=== PATIENT | female | born 1990 | race Caucasian/White ===

== ENCOUNTER 2018-11-27 11:32 | Day surgery (SDC) | payer OTHER ==
[~2018-11-27] VITALS: Ht 157.5 cm; Wt 63.0 kg
[2018-11-27] MEDS ORDERED: CLARITIN (11:55)
[2018-11-27] MEDS ORDERED: XANAX (11:55)
[2018-11-27] MEDS ORDERED: LEXAPRO (11:55)
[2018-11-27] MEDS ORDERED: OMEPRAZOLE (11:55)
[2018-11-27 12:09] VITALS: Ht 157.5 cm; Wt 63.0 kg
[2018-11-27 12:19] VITALS: BP 110/58; PULSE 69; RESP 15
[2018-11-27] MEDS ORDERED: PROPOFOL 20 ML ONE (12:35)
[2018-11-27] MEDS ORDERED: FENTAnyl 50 MCG/ML VIAL ONE (12:35)
[2018-11-27] MEDS ORDERED: LIDOCAINE 2% (SDV) 5 ML INJ ONE (12:35)
[2018-11-27] MEDS ORDERED: MIDAZOLAM 1 MG/ML 2 ML INJ ONE (12:35)
--- NOTE | 2018-11-27 12:37 | PREAC ---
Date/Time of Note Date/Time of Note DATE: 11/27/18 TIME: 12:36 Anesthesia Eval and Record Evaluation Time Pre-Procedure Interview DATE: 11/27/18 TIME: 12:36 Age 28 Sex female NPO: 8 hrs Preoperative diagnosis reflux and abd pain Planned procedure egd Past Medical History Past Medical History: Includes Psych: Anxiety Surgery & Anesthesia Issues No known issue Meds Anticoagulation: No Beta Eusebio within 24 hr: No Reason Beta Eusebio not given: Pt. not on B-Eusebio Reported Medications [Omeprazole] No Conflict Check 11/27/18 [Claritin] No Conflict Check 11/27/18 [Xanax] No Conflict Check 11/27/18 [Lexapro] No Conflict Check 11/27/18 Meds reviewed: Yes Allergies Coded Allergies: No Known Allergy (Unverified , 11/27/18) Allergies Reviewed: Yes Labs/Studies Labs Reviewed: Reviewed by anesthesiologist test: Negative Pre-procedure Exam Last vitals Vital Signs Date Temp Pulse Resp B/P (MAP) Pulse Ox O2 O2 Flow FiO2 Time Delivery Rate 11/27/18 97.8 69 15 110/58 98 Room Air 12:19 (75) Airway: Adequate mouth opening, Adequate thyromental dist Mallampati: Mallampati II Teeth: Normal Lung: Normal Heart: Normal ASA Physical Status ASA physical status: 2 Emergency: None Pre-operative Attestations Prior to commencing anesthesia and surgery, the patient was re-evaluated, there was verification of: *The patient's identity *The results of appropriate recent lab work and preoperative vital signs *The above evaluation not changing prior to induction *Anesthetic plan, risk benefits, alternative and complications discussed with patient/family; questions answered; patient/family understands, accepts and wishes to proceed. SAMANTHA BULL DO Nov 27, 2018 12:37
[2018-11-27 13:21] VITALS: BP 95/53; PULSE 62; RESP 12
--- NOTE | 2018-11-27 13:41 | PAC ---
Date/Time of Note Date/Time of Note DATE: 11/27/18 TIME: 12:57 Post-Anesthesia Notes Post-Anesthesia Note Last documented vital signs Vital Signs Date Temp Pulse Resp B/P (MAP) Pulse Ox O2 O2 Flow FiO2 Time Delivery Rate 11/27/18 97.8 70 15 111/65 98 Room Air 12:29 Activity: WNL Respiratory function: WNL Cardiovascular function: WNL Mental status: Baseline Pain reasonably controlled: Yes Hydration appropriate: Yes Nausea/Vomiting absent: Yes SAMANTHA BULL DO Nov 27, 2018 13:41
--- NOTE | 2018-11-27 20:01 | CONS ---
DATE OF ADMISSION: 11/27/2018 DATE OF CONSULTATION: PATIENT NAME: MAEGAN PRAKASH TYPE OF CONSULTATION: Preoperative gastroenterology. I thank you very much for this kind referral. HISTORY OF PRESENT ILLNESS: Ms. Maegan Prakash is a 27-year-old female patient who has been referred to me for further evaluation of upper abdominal pain and chronic heartburn not completely responding to therapy with omeprazole. No past history of peptic ulcer disease. Not on nonsteroidal anti-infl ammatory agents. No history of gallstones or liver disease. No change in the bowel habit or rectal bleeding. No past history of inflammatory bowel disease or colon neoplasm. Not a hypertensive or di abetic. No heart disease, lung problem or kidney disease. PAST MEDICAL HISTORY: The patient has got anxiety disorder. SOCIAL HISTORY: She is a smoker. She also smokes marijuana. FAMILY HISTORY: The patient has got family history of colon cancer. PHYSICAL EXAMINATION: VITAL SIGNS: She is 5 feet tall and weighs 146 pounds. HEART: Normal heart sounds. LUNGS: Clear. ABDOMEN: Soft. No masses. Normal bowel sounds. NEUROLOGIC: Normal. IMPRESSION: 1. Upper abdominal pain and chronic heartburn, not responding to therapy with omeprazole. 2. Anxiety disorder. 3. Family history of colon cancer. 4. The patient is a smoker and she also smokes marijuana. PLAN: 1. Continue omeprazole. 2. Endoscopy for further evaluation. 3. Because of the history of anxiety disorder and use of marijuana, which makes her resistant to morgan cotics, she needs monitored anesthesia care. The procedure and possible complications are well explained to the patient. She understands and cons ents to the procedures. I thank you once again. With warmest personal regards, Dictated By: KEARA QUINTERO/ADRIAN Conf#: [id number] DID#: [id number]
== END 2018-11-27 13:44 | disposition home or self-care (01) ==
LOC: GIL 11:32
PROVIDERS: ATTEND Internal Medicine Gastroenterology
DX: K44.9 Diaphragmatic hernia without obstruction or gangrene (principal); K21.9 Gastro-esophageal reflux disease without esophagitis
CPT/HCPCS: 43239; 84703; 88305; J2250; J3010; Z7610